=== PATIENT | male | born 1985 | race Caucasian/White ===

== ENCOUNTER 2016-06-12 00:12 | Emergency (ER) | payer OTHER ==
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
--- NOTE | 2016-06-12 01:39 | ED ORDER SUMMARY ---
..... Patient: CATIE LOJA OrderSheet [facility] VisitID: [id number] [address] [place] [address] 30y, M Registration Date/Time: 06/12/2016 ORDER SHEET Weight: 89.3 kg (stated) Allergies: No Known Drug Allergy GENERAL ORDERS: Dress Wounds (01:25 06/12/2016 EInderbitzen R.N. verbal order read back to Patricia Bernardo) (1:32 EInderbitzen R.N.) MEDICATION ORDERS: Adacel IM 0.5 mL (NOW) (00:51 06/12/2016 EInderbitzen R.N. verbal order read back to Patricia Bernardo) (0:53 EInderbitzen R.N.) Silvadene Cream Topical (Cream 1 %) 1 application (NOW) (01:24 06/12/2016 EInderbitzen R.N. verbal order read back to Patricia Bernardo) (1:32 EInderbitzen R.N.) IV FLUIDS: Dilaudid IV 1 mg (HIGH ALERT MEDICATION, NOW) (00:45 06/12/2016 EInderbitzen R.N. verbal order read back to Patricia Bernardo) (0:46 EInderbitzen R.N.) Zofran IV 4 mg (NOW) (00:45 06/12/2016 EInderbitzen R.N. verbal order read back to Patricia Bernardo) (0:46 EInderbitzen R.N.) IV Saline Lock (00:46 06/12/2016 EInderbitzen R.N. verbal order read back to Patricia Bernardo) (0:46 EInderbitzen R.N.) Dilaudid IV 1 mg (HIGH ALERT MEDICATION, NOW) (01:15 06/12/2016 Patricia Bernardo) (1:24 EInderbitzen R.N.) ORDER SHEET NOTES: [Electronically signed by Ned Ortiz Dr. (01:45 06/12/2016)] [Electronically signed by Tonja Pulido R.N. (02:11 06/12/2016)] [Electronically locked/signed by Tonja Pulido R.N. (02:11 06/12/2016)]
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
--- NOTE | 2016-06-12 01:39 | ED ORDER SUMMARY ---
..... Patient: CATIE LOJA OrderSheet [facility] VisitID: [id number] [address] [place] [place] [address] 30y, M Registration Date/Time: 06/12/2016 ORDER SHEET Weight: 89.3 kg (stated) Allergies: No Known Drug Allergy GENERAL ORDERS: Dress Wounds (01:25 06/12/2016 EInderbitzen R.N. verbal order read back to Patricia Bernardo) (1:32 EInderbitzen R.N.) MEDICATION ORDERS: Adacel IM 0.5 mL (NOW) (00:51 06/12/2016 EInderbitzen R.N. verbal order read back to Patricia Bernardo) (0:53 EInderbitzen R.N.) Silvadene Cream Topical (Cream 1 %) 1 application (NOW) (01:24 06/12/2016 EInderbitzen R.N. verbal order read back to Patricia Bernardo) (1:32 EInderbitzen R.N.) IV FLUIDS: Dilaudid IV 1 mg (HIGH ALERT MEDICATION, NOW) (00:45 06/12/2016 EInderbitzen R.N. verbal order read back to Patricia Bernardo) (0:46 EInderbitzen R.N.) Zofran IV 4 mg (NOW) (00:45 06/12/2016 EInderbitzen R.N. verbal order read back to Patricia Bernardo) (0:46 EInderbitzen R.N.) IV Saline Lock (00:46 06/12/2016 EInderbitzen R.N. verbal order read back to Patricia Bernardo) (0:46 EInderbitzen R.N.) Dilaudid IV 1 mg (HIGH ALERT MEDICATION, NOW) (01:15 06/12/2016 Patricia Bernardo) (1:24 EInderbitzen R.N.) ORDER SHEET NOTES: [Electronically signed by Ned Ortiz Dr. (01:45 06/12/2016)] [Electronically signed by Tonja Pulido R.N. (02:11 06/12/2016)] [Electronically locked/signed by Tonja Pulido R.N. (02:11 06/12/2016)]
--- NOTE | 2016-06-12 02:12 | ED MAR SUMMARY ---
..... Medication Administration Record [facility] [address] [place] [address] Patient: CATIE LOJA Visit ID: [id number] 30y, M Weight: 89.3 kg Height/Length: 67 in BMI: 30.9 ALLERGIES: No Known Drug Allergy Given 00:06/12/2016 Tonja Pulido R.N. Medication Administered: DILAUDID [IVP] (HYDROMORPHONE HCL PF), Dose: 1 mg IVP over 1 minute(s), Site: #1 left hand. Medication Ordered: Dilaudid IV 1 mg (HIGH ALERT MEDICATION, NOW). Given 00:06/12/2016 Tonja Pulido R.N. Medication Administered: ZOFRAN [IVP] (ONDANSETRON HCL), Dose: 4 mg IVP over 1 minute(s), Site: #1 left hand. Medication Ordered: Zofran IV 4 mg (NOW). Given 00:06/12/2016 Tonja Pulido R.N. Medication Administered: ADACEL [IM], Dose: 0.5 mL IM. Medication Ordered: Adacel IM 0.5 mL (NOW). Given 06/12/2016 Tonja Pulido R.N. Medication Administered: DILAUDID [IVP] (HYDROMORPHONE HCL PF), Dose: 1 mg IVP over 1 minute(s), Site: #1 left hand. Medication Ordered: Dilaudid IV 1 mg (HIGH ALERT MEDICATION, NOW). Given 06/12/2016 Tonja Pulido R.N. Medication Administered: SILVADENE CREAM [TOPICAL] (SILVER SULFADIAZINE), Dose: 1 application Cream Topical. Medication Ordered: Silvadene Cream Topical (Cream 1 %) 1 application (NOW).
--- NOTE | 2016-06-12 02:12 | ED DISCHARGE INSTRUCTIONS ---
Patient: CATIE LOJA General Instructions [facility] VisitID: [id number] [address] [place] [address] 30y, M Registration Date/Time: 06/12/2016 Multiple second degree thermal estevez to the dorsum of the right hand, to the right thumb, to the right ring finger and to the right little finger. INSTRUCTIONS Protect burn and keep area clean. Leave dressing in place until seen in follow-up. Do not work until released. Prescription Medications: Silvadene cream 1% : apply to affected area three times daily. Dispense fifty (50) grams. No refill. Substitution is permissible Hydrocodone/APAP 5mg / 325mg: take 1-2 orally every 6 hours as needed for pain. Dispense thirty (30). No refill. Follow-up: Screening today revealed the patient's blood pressure to be in the pre-hypertensive range. The patient should follow up with a primary care provider for blood pressure management. Follow-up with: [facility], , , [facility], [address] [place] [address] [address], [place] [address] Follow up today. Call for an appointment. ADDITIONAL INFORMATION Estevez [1', 2', 3'] A burn occurs when skin is exposed to excessive heat, sun, or harsh chemicals. A first degree burn causes redness only, like a sunburn, and heals in a few days. A second degree burn is deeper and causes a blister to form. This may take up to two weeks to heal. A third degree burn damages all layers of the skin and is very serious. It may take a month or more to heal. Home Care On the first day, you may apply a cool compress (small towel soaked in cool water) to relieve severe pain. If a bandage was applied, change it once a day, unless told otherwise. If the bandage sticks, soak it off under warm running water. Before changing a bandage, wash your hands. Then, wash the area with soap and water to remove any cream, ointment, ooze or scab. You may do this in a sink, under a tub faucet or in the shower. Rinse off the soap and pat dry with a clean towel. Look for signs of infection listed below. Reapply any prescribed cream/ointment to prevent infection and keep the bandage from sticking. Cover the burn with a non-stick gauze. Then wrap it with the bandage material. If the bandage becomes wet or soiled, change it as soon as possible. Use acetaminophen (Tylenol) or ibuprofen (Motrin, Advil) to control pain, unless another pain medicine was prescribed. [NOTE: If you have chronic liver or kidney disease or ever had a stomach ulcer or GI bleeding, talk with your doctor before using these medications.] Follow Up with your doctor or as advised by our staff. Most estevez heal without infection. Occasionally, an infection may occur despite proper treatment. Therefore, check the burn daily for the signs of infection listed below. Get Prompt Medical Attention if any of the following signs of infection occur: Increasing pain in the wound Increasing redness, swelling or pus coming from the wound Red streaks in your skin coming from the burn Fever of 100.4 F (38 C) or higher, or as directed by your healthcare provider Silver Sulfadiazine Topical cream What is this medicine? SILVER SULFADIAZINE (CARLOS lissette sul fa DYE a zeen) is a sulfonamide antibiotic. It is used on the skin for second or third degree estevez. It helps to prevent or treat serious infection. How should I use this medicine? This medicine is for external use only. Follow the directions on the prescription label. Clean the affected area and remove burned or skin. Wear a sterile glove to apply the cream. Apply the cream to cover the whole area evenly. Treated areas can be left uncovered, but a gauze dressing may be used. Do not get this medicine in your eyes. If you do, rinse out with plenty of cool tap water. Finish the full course of medicine prescribed by your doctor or health morning caregiver even if you think your condition is better. Do not stop using except on your doctor's advice. Talk to your door builder regarding the use of this medicine in children. Special care may be needed. What side effects may I notice from receiving this medicine? Side effects that you should report to your doctor or health morning caregiver as soon as possible: fever, sore throat, chills increased sensitivity to the sun or ultraviolet light lower back pain pain or difficulty passing urine rash that appears or worsens following treatment, continued redness, swelling, burning, itching, stinging, or pain at the area of use redness, blistering, peeling or loosening of the skin unusual bleeding or bruising Side effects that usually do not require medical attention (report to your doctor or health morning caregiver if they continue or are bothersome): brownish jensen discoloration of skin, nails or clothing itching What may interact with this medicine? collagenase, papain, or sutilains What if I miss a dose? If you miss a dose, use it as soon as you can. If it is almost time for your next dose, use only that dose. Do not use double or extra doses. Where should I keep my medicine? Keep out of the reach of children. Store at room temperature between 15 and 30 degrees C (59 and 86 degrees F). Throw away any unused medicine after the expiration date. What should I tell my health care provider before I take this medicine? They need to know if you have any of these conditions: anemia or other blood disorders [id number] dehydrogenase (G6PD) deficiency kidney disease liver disease porphyria -an unusual or allergic reaction to silver sulfadiazine, sulfa drugs, other medicines, foods, dyes, or preservatives or trying to get breast-feeding What should I watch for while using this medicine? Tell your doctor or health morning caregiver if your skin condition does not begin to get better within 3 to 5 days. This medicine can make you more sensitive to the sun. Keep out of the sun. If you cannot avoid being in the sun, wear protective clothing and use sunscreen. Do not use sun lamps or tanning beds/booths. Hydrocodone Bitartrate, Acetaminophen Oral tablet What is this medicine? ACETAMINOPHEN; HYDROCODONE (a set a HEIDY alanna fen; leigh ann droe KOE done) is a pain reliever. It is used to treat mild to moderate pain. How should I use this medicine? Take this medicine by mouth. Swallow it with a full glass of water. Follow the directions on the prescription label. If the medicine upsets your stomach, take the medicine with food or milk. Do not take more than you are told to take. Talk to your door builder regarding the use of this medicine in children. This medicine is not approved for use in children. What side effects may I notice from receiving this medicine? Side effects that you should report to your doctor or health morning caregiver as soon as possible: allergic reactions like skin rash, itching or hives, swelling of the face, lips, or tongue breathing problems confusion feeling faint or lightheaded, falls stomach pain yellowing of the eyes or skin Side effects that usually do not require medical attention (report to your doctor or health morning caregiver if they continue or are bothersome): nausea, vomiting stomach upset What may interact with this medicine? alcohol antihistamines isoniazid medicines for depression, anxiety, or psychotic disturbances medicines for sleep muscle relaxants naltrexone narcotic medicines (opiates) for pain phenobarbital ritonavir tramadol What if I miss a dose? If you miss a dose, take it as soon as you can. If it is almost time for your next dose, take only that dose. Do not take double or extra doses. Where should I keep my medicine? Keep out of the reach of children. This medicine can be abused. Keep your medicine in a safe place to protect it from theft. Do not share this medicine with anyone. Selling or giving away this medicine is dangerous and against the law. Store at room temperature between 15 and 30 degrees C (59 and 86 degrees F). Protect from light. Keep container tightly closed. Throw away any unused medicine after the expiration date. Discard unused medicine and used packaging carefully. Pets and children can be harmed if they find used or lost packages. What should I tell my health care provider before I take this medicine? They need to know if you have any of these conditions: brain tumor Crohn's disease, inflammatory bowel disease, or ulcerative colitis drink more than 3 alcohol-containing drinks per day drug abuse or addiction head injury heart or circulation problems kidney disease or problems going to the bathroom liver disease lung disease, asthma, or breathing problems an unusual or allergic reaction to acetaminophen, hydrocodone, other opioid analgesics, other medicines, foods, dyes, or preservatives or trying to get breast-feeding What should I watch for while using this medicine? Tell your doctor or health morning caregiver if your pain does not go away, if it gets worse, or if you have new or a different type of pain. You may develop tolerance to the medicine. Tolerance means that you will need a higher dose of the medicine for pain relief. Tolerance is normal and is expected if you take the medicine for a long time. Do not suddenly stop taking your medicine because you may develop a severe reaction. Your body becomes used to the medicine. This does NOT mean you are addicted. Addiction is a behavior related to getting and using a drug for a non-medical reason. If you have pain, you have a medical reason to take pain medicine. Your doctor will tell you how much medicine to take. If your doctor wants you to stop the medicine, the dose will be slowly lowered over time to avoid any side effects. You may get drowsy or dizzy when you first start taking the medicine or change doses. Do not drive, use machinery, or do anything that may be dangerous until you know how the medicine affects you. Stand or sit up slowly. There are different types of narcotic medicines (opiates) for pain. If you take more than one type at the same time, you may have more side effects. Give your health care provider a list of all medicines you use. Your doctor will tell you how much medicine to take. Do not take more medicine than directed. Call emergency for help if you have problems breathing. The medicine will cause constipation. Try to have a bowel movement at least every 2 to 3 days. If you do not have a bowel movement for 3 days, call your doctor or health morning caregiver. Too much acetaminophen can be very dangerous. Do not take Tylenol (acetaminophen) or medicines that contain acetaminophen with this medicine. Many non-prescription medicines contain acetaminophen. Always read the labels carefully. You have been given the following additional information: Burn, Thermal, (1'2'3') W/ Dressing Silver Sulfadiazine Topical cream Hydrocodone Bitartrate, Acetaminophen Oral tablet Do not work until released. (Electronically signed by Ned Ortiz Dr. 06/12/2016 1:45)
--- NOTE | 2016-06-12 02:12 | ED MAR SUMMARY ---
..... Medication Administration Record [facility] [address] [facility] [place] [address] Patient: CATIE LOJA Visit ID: [id number] 30y, M Weight: 89.3 kg Height/Length: 67 in BMI: 30.9 ALLERGIES: No Known Drug Allergy Given 00:06/12/2016 Tonja Pulido R.N. Medication Administered: DILAUDID [IVP] (HYDROMORPHONE HCL PF), Dose: 1 mg IVP over 1 minute(s), Site: #1 left hand. Medication Ordered: Dilaudid IV 1 mg (HIGH ALERT MEDICATION, NOW). Given 00:06/12/2016 Tonja Pulido R.N. Medication Administered: ZOFRAN [IVP] (ONDANSETRON HCL), Dose: 4 mg IVP over 1 minute(s), Site: #1 left hand. Medication Ordered: Zofran IV 4 mg (NOW). Given 00:06/12/2016 Tonja Pulido R.N. Medication Administered: ADACEL [IM], Dose: 0.5 mL IM. Medication Ordered: Adacel IM 0.5 mL (NOW). Given 06/12/2016 Tonja Pluido R.N. Medication Administered: DILAUDID [IVP] (HYDROMORPHONE HCL PF), Dose: 1 mg IVP over 1 minute(s), Site: #1 left hand. Medication Ordered: Dilaudid IV 1 mg (HIGH ALERT MEDICATION, NOW). Given 06/12/2016 Tonja Pulido R.N. Medication Administered: SILVADENE CREAM [TOPICAL] (SILVER SULFADIAZINE), Dose: 1 application Cream Topical. Medication Ordered: Silvadene Cream Topical (Cream 1 %) 1 application (NOW).
--- NOTE | 2016-06-12 02:12 | ED MED RECONCILIATION SUMMARY ---
Patient: CATIE LOJA Medication Reconciliation Report [facility] VisitID: [id number] [address] [place] [address] 30y, M Registration Date/Time: 06/12/2016 Weight: 89.3 kg Height/Length: 67 in. BMI: 30.9 ALLERGIES: No Known Drug Allergy The patient's Home Medications are listed below: NONE. The source(s) of the original Home Medication information: Not obtained. The following Medications were given to the patient in the Emergency Department: Zofran [IVP] IVP 4 mg, administered: 06/12/2016 12:39:00 AM Dilaudid [IVP] IVP 1 mg, administered: 06/12/2016 12:39:00 AM Adacel [IM] IM 0.5 mL, administered: 06/12/2016 12:39:00 AM Dilaudid [IVP] IVP 1 mg, administered: 06/12/2016 1:18:00 AM SILVADENE CREAM [TOPICAL] Topical 1 application, administered: 06/12/2016 1:30:00 AM The following Medications were prescribed to the patient: Silvadene cream 1% : apply to affected area three times daily. Dispense fifty (50) grams. No refill. Substitution is permissible -- Ned Ortiz Dr. Hydrocodone/APAP 5mg / 325mg: take 1-2 orally every 6 hours as needed for pain. Dispense thirty (30). No refill. -- Ned Ortiz Dr.
--- NOTE | 2016-06-12 02:12 | ED MED RECONCILIATION SUMMARY ---
Patient: CATIE LOJA Medication Reconciliation Report [facility] VisitID: [id number] [address] [place] [address] 30y, M Registration Date/Time: 06/12/2016 Weight: 89.3 kg Height/Length: 67 in. BMI: 30.9 ALLERGIES: No Known Drug Allergy The patient's Home Medications are listed below: NONE. The source(s) of the original Home Medication information: Not obtained. The following Medications were given to the patient in the Emergency Department: Zofran [IVP] IVP 4 mg, administered: 06/12/2016 12:39:00 AM Dilaudid [IVP] IVP 1 mg, administered: 06/12/2016 12:39:00 AM Adacel [IM] IM 0.5 mL, administered: 06/12/2016 12:39:00 AM Dilaudid [IVP] IVP 1 mg, administered: 06/12/2016 1:18:00 AM SILVADENE CREAM [TOPICAL] Topical 1 application, administered: 06/12/2016 1:30:00 AM The following Medications were prescribed to the patient: Silvadene cream 1% : apply to affected area three times daily. Dispense fifty (50) grams. No refill. Substitution is permissible -- Ned Ortiz Dr. Hydrocodone/APAP 5mg / 325mg: take 1-2 orally every 6 hours as needed for pain. Dispense thirty (30). No refill. -- Ned Ortiz Dr.
--- NOTE | 2016-06-12 02:12 | ED DISCHARGE INSTRUCTIONS ---
Patient: CATIE LOJA General Instructions [facility] VisitID: [id number] [address] [place] [address] 30y, M Registration Date/Time: 06/12/2016 Multiple second degree thermal estevez to the dorsum of the right hand, to the right thumb, to the right ring finger and to the right little finger. INSTRUCTIONS Protect burn and keep area clean. Leave dressing in place until seen in follow-up. Do not work until released. Prescription Medications: Silvadene cream 1% : apply to affected area three times daily. Dispense fifty (50) grams. No refill. Substitution is permissible Hydrocodone/APAP 5mg / 325mg: take 1-2 orally every 6 hours as needed for pain. Dispense thirty (30). No refill. Follow-up: Screening today revealed the patient's blood pressure to be in the pre-hypertensive range. The patient should follow up with a primary care provider for blood pressure management. Follow-up with: [facility], , , [facility], [address] [place] [address] [address], [place] [address] Follow up today. Call for an appointment. ADDITIONAL INFORMATION Estevez [1', 2', 3'] A burn occurs when skin is exposed to excessive heat, sun, or harsh chemicals. A first degree burn causes redness only, like a sunburn, and heals in a few days. A second degree burn is deeper and causes a blister to form. This may take up to two weeks to heal. A third degree burn damages all layers of the skin and is very serious. It may take a month or more to heal. Home Care On the first day, you may apply a cool compress (small towel soaked in cool water) to relieve severe pain. If a bandage was applied, change it once a day, unless told otherwise. If the bandage sticks, soak it off under warm running water. Before changing a bandage, wash your hands. Then, wash the area with soap and water to remove any cream, ointment, ooze or scab. You may do this in a sink, under a tub faucet or in the shower. Rinse off the soap and pat dry with a clean towel. Look for signs of infection listed below. Reapply any prescribed cream/ointment to prevent infection and keep the bandage from sticking. Cover the burn with a non-stick gauze. Then wrap it with the bandage material. If the bandage becomes wet or soiled, change it as soon as possible. Use acetaminophen (Tylenol) or ibuprofen (Motrin, Advil) to control pain, unless another pain medicine was prescribed. [NOTE: If you have chronic liver or kidney disease or ever had a stomach ulcer or GI bleeding, talk with your doctor before using these medications.] Follow Up with your doctor or as advised by our staff. Most estevez heal without infection. Occasionally, an infection may occur despite proper treatment. Therefore, check the burn daily for the signs of infection listed below. Get Prompt Medical Attention if any of the following signs of infection occur: Increasing pain in the wound Increasing redness, swelling or pus coming from the wound Red streaks in your skin coming from the burn Fever of 100.4 F (38 C) or higher, or as directed by your healthcare provider Silver Sulfadiazine Topical cream What is this medicine? SILVER SULFADIAZINE (CARLOS lissette sul fa DYE a zeen) is a sulfonamide antibiotic. It is used on the skin for second or third degree estevez. It helps to prevent or treat serious infection. How should I use this medicine? This medicine is for external use only. Follow the directions on the prescription label. Clean the affected area and remove burned or skin. Wear a sterile glove to apply the cream. Apply the cream to cover the whole area evenly. Treated areas can be left uncovered, but a gauze dressing may be used. Do not get this medicine in your eyes. If you do, rinse out with plenty of cool tap water. Finish the full course of medicine prescribed by your doctor or health healthcare advisory services manager even if you think your condition is better. Do not stop using except on your doctor's advice. Talk to your floor polisher regarding the use of this medicine in children. Special care may be needed. What side effects may I notice from receiving this medicine? Side effects that you should report to your doctor or health healthcare advisory services manager as soon as possible: fever, sore throat, chills increased sensitivity to the sun or ultraviolet light lower back pain pain or difficulty passing urine rash that appears or worsens following treatment, continued redness, swelling, burning, itching, stinging, or pain at the area of use redness, blistering, peeling or loosening of the skin unusual bleeding or bruising Side effects that usually do not require medical attention (report to your doctor or health healthcare advisory services manager if they continue or are bothersome): brownish jensen discoloration of skin, nails or clothing itching What may interact with this medicine? collagenase, papain, or sutilains What if I miss a dose? If you miss a dose, use it as soon as you can. If it is almost time for your next dose, use only that dose. Do not use double or extra doses. Where should I keep my medicine? Keep out of the reach of children. Store at room temperature between 15 and 30 degrees C (59 and 86 degrees F). Throw away any unused medicine after the expiration date. What should I tell my health care provider before I take this medicine? They need to know if you have any of these conditions: anemia or other blood disorders [id number] dehydrogenase (G6PD) deficiency kidney disease liver disease porphyria -an unusual or allergic reaction to silver sulfadiazine, sulfa drugs, other medicines, foods, dyes, or preservatives or trying to get breast-feeding What should I watch for while using this medicine? Tell your doctor or health healthcare advisory services manager if your skin condition does not begin to get better within 3 to 5 days. This medicine can make you more sensitive to the sun. Keep out of the sun. If you cannot avoid being in the sun, wear protective clothing and use sunscreen. Do not use sun lamps or tanning beds/booths. Hydrocodone Bitartrate, Acetaminophen Oral tablet What is this medicine? ACETAMINOPHEN; HYDROCODONE (a set a HEIDY alanna fen; leigh ann droe KOE done) is a pain reliever. It is used to treat mild to moderate pain. How should I use this medicine? Take this medicine by mouth. Swallow it with a full glass of water. Follow the directions on the prescription label. If the medicine upsets your stomach, take the medicine with food or milk. Do not take more than you are told to take. Talk to your floor polisher regarding the use of this medicine in children. This medicine is not approved for use in children. What side effects may I notice from receiving this medicine? Side effects that you should report to your doctor or health healthcare advisory services manager as soon as possible: allergic reactions like skin rash, itching or hives, swelling of the face, lips, or tongue breathing problems confusion feeling faint or lightheaded, falls stomach pain yellowing of the eyes or skin Side effects that usually do not require medical attention (report to your doctor or health healthcare advisory services manager if they continue or are bothersome): nausea, vomiting stomach upset What may interact with this medicine? alcohol antihistamines isoniazid medicines for depression, anxiety, or psychotic disturbances medicines for sleep muscle relaxants naltrexone narcotic medicines (opiates) for pain phenobarbital ritonavir tramadol What if I miss a dose? If you miss a dose, take it as soon as you can. If it is almost time for your next dose, take only that dose. Do not take double or extra doses. Where should I keep my medicine? Keep out of the reach of children. This medicine can be abused. Keep your medicine in a safe place to protect it from theft. Do not share this medicine with anyone. Selling or giving away this medicine is dangerous and against the law. Store at room temperature between 15 and 30 degrees C (59 and 86 degrees F). Protect from light. Keep container tightly closed. Throw away any unused medicine after the expiration date. Discard unused medicine and used packaging carefully. Pets and children can be harmed if they find used or lost packages. What should I tell my health care provider before I take this medicine? They need to know if you have any of these conditions: brain tumor Crohn's disease, inflammatory bowel disease, or ulcerative colitis drink more than 3 alcohol-containing drinks per day drug abuse or addiction head injury heart or circulation problems kidney disease or problems going to the bathroom liver disease lung disease, asthma, or breathing problems an unusual or allergic reaction to acetaminophen, hydrocodone, other opioid analgesics, other medicines, foods, dyes, or preservatives or trying to get breast-feeding What should I watch for while using this medicine? Tell your doctor or health healthcare advisory services manager if your pain does not go away, if it gets worse, or if you have new or a different type of pain. You may develop tolerance to the medicine. Tolerance means that you will need a higher dose of the medicine for pain relief. Tolerance is normal and is expected if you take the medicine for a long time. Do not suddenly stop taking your medicine because you may develop a severe reaction. Your body becomes used to the medicine. This does NOT mean you are addicted. Addiction is a behavior related to getting and using a drug for a non-medical reason. If you have pain, you have a medical reason to take pain medicine. Your doctor will tell you how much medicine to take. If your doctor wants you to stop the medicine, the dose will be slowly lowered over time to avoid any side effects. You may get drowsy or dizzy when you first start taking the medicine or change doses. Do not drive, use machinery, or do anything that may be dangerous until you know how the medicine affects you. Stand or sit up slowly. There are different types of narcotic medicines (opiates) for pain. If you take more than one type at the same time, you may have more side effects. Give your health care provider a list of all medicines you use. Your doctor will tell you how much medicine to take. Do not take more medicine than directed. Call emergency for help if you have problems breathing. The medicine will cause constipation. Try to have a bowel movement at least every 2 to 3 days. If you do not have a bowel movement for 3 days, call your doctor or health healthcare advisory services manager. Too much acetaminophen can be very dangerous. Do not take Tylenol (acetaminophen) or medicines that contain acetaminophen with this medicine. Many non-prescription medicines contain acetaminophen. Always read the labels carefully. You have been given the following additional information: Burn, Thermal, (1'2'3') W/ Dressing Silver Sulfadiazine Topical cream Hydrocodone Bitartrate, Acetaminophen Oral tablet Do not work until released. (Electronically signed by Ned Ortiz Dr. 06/12/2016 1:45)
== END 2016-06-12 02:06 | disposition home or self-care (01) ==
LOC: ED SRH 00:12
DX: T23.241A Burn of second degree of multiple right fingers (nail), including thumb, initial encounter (principal); T31.0 Burns involving less than 10% of body surface; X08.8XXA Exposure to other specified smoke, fire and flames, initial encounter; Y93.9 Activity, unspecified; Y92.009 Unspecified place in unspecified non-institutional (private) residence as the place of occurrence of the external cause